=== PATIENT | female | born 1980 | race Caucasian/White ===

== ENCOUNTER 2018-05-22 10:49 | Emergency (ER) | payer SELFPAY ==
[~2018-05-22] VITALS: Ht 167.6 cm; Wt 63.5 kg
--- NOTE | 2018-05-22 11:00 | NUR ---
A/OX4, AMBULATORY IN A STEADY GAIT TO ED BED 07, C/O CONSTIPATION. LAST BM 2 DAYS AGO. PAIN/BLEEDING TO RECTAL AREA. FACIAL GRIMAING NOTED. NAD VSS RR EVEN AND UNLABORED, PENDING ER MD EVALUATION
--- NOTE | 2018-05-22 11:12 | NUR ---
LISSETTE PATEL AT BEDSIDE TO ASSESS PATIENT, AMY TORRES AT BEDSIDE TO [employer] M[employer] ASSISTANT
[2018-05-22] MEDS ORDERED: LIDOCAINE 2% JEL UROJET 10 ML MM ONE ×2 (11:24→11:30)
[2018-05-22] MEDS ORDERED: MINERAL OIL 133 ML (PYXIS) 1 EA ENEMA RC ONE (11:24)
[2018-05-22] MEDS ORDERED: MAGNESIUM HYDROXIDE 30 ML UDC ONE (11:24)
[2018-05-22] MEDS ORDERED: ONDANSETRON HCL/PF 4 MG/2 ML VIAL ONE (11:24)
[2018-05-22] MEDS ORDERED: MORPHINE SULFATE INJ 4 MG/ML DISP.SYRIN ONE (11:25)
[2018-05-22] MEDS ORDERED: ONDANSETRON HCL/PF 4 MG/2 ML VIAL IVP ONE (11:30)
[2018-05-22] MEDS ORDERED: NA PHOS,M-B/NA PHOS,DI-BA 1 EA ENEMA RC ONE (11:30)
[2018-05-22] MEDS ORDERED: MAGNESIUM HYDROXIDE 30 ML UDC PO ONE (11:30)
[2018-05-22] MEDS ORDERED: IV NS 0.9% 1,000 ML BAG IV ONE (11:30)
[2018-05-22] MEDS ORDERED: MORPHINE SULFATE INJ 2 MG/ML DISP.SYRIN IV ONE (11:30)
[2018-05-22] MEDS ORDERED: KETOROLAC TROMETHAMINE INJ 30 MG/ML VIAL ONE (12:24)
[2018-05-22] MEDS ORDERED: KETOROLAC TROMETHAMINE INJ 30 MG/ML VIAL IV ONE (12:30)
[2018-05-22 13:03] VITALS: BP 124/80
--- NOTE | 2018-05-22 13:03 | NUR ---
Patient discharged to home in stable condition. Written and verbal after care instructions given. Patient verbalizes understanding of instruction.IV removed. Catheter intact and site benign. Pressure and 4x4 applied to site. No bleeding noted.
== END 2018-05-22 13:05 | disposition home or self-care (01) ==
LOC: ER 10:55
DX: K59.00 Constipation, unspecified (principal); Z88.0 Allergy status to penicillin
CPT/HCPCS: 96374; 96375; 99284; A4606; J1885; J2270; J2405; J3490; J7030; Z7610